=== PATIENT | female | born 1990 | race Caucasian/White ===

== ENCOUNTER → 2023-06-07 | Outpatient (CLI) | payer OTHER ==
--- NOTE | 2023-06-07 14:32 | US ---
EXAMINATION TYPE: US pelvic complete DATE OF EXAM: 06/07/2023 COMPARISON: NONE CLINICAL INDICATION: Female, 33 years old with history of N93.9 ABNORMAL UTERINE AND VAGINAL BLEEDING , UNSPECIFIED; breakthrough bleeding on BCP for years. TECHNIQUE: Transabdominal EXAM MEASUREMENTS: Uterus: 6.8 x 3.5 x 4.9 cm Endometrial Stripe: 0.4 cm 1. Uterus: Anteverted wnl 2. Endometrium: wnl 3. Right Ovary: Obscured by overlying bowel gas 4. Left Ovary: Obscured by overlying bowel gas 5. Bilateral Adnexa: wnl 6. Posterior cul-de-sac: wnl IMPRESSION: 1. No evidence for acute process. 2. Endometrium within normal limits for thickness.
== END | disposition home or self-care (01) ==
LOC: RADUSWWP 13:38
PROVIDERS: ATTEND Family Medicine
DX: N93.9 Abnormal uterine and vaginal bleeding, unspecified (principal)
CPT/HCPCS: 76856

== ENCOUNTER → 2024-01-04 | Outpatient (CLI) | payer OTHER ==
[2024-01-04 16:16] LABS: Thyroid Peroxidase Antibodies 11.7 U/mL (0.0-33.0)
[2024-01-04 16:26] LABS: T4, Free (Free Thyroxine) 1.18 ng/dL (0.80-1.80)
[2024-01-04 18:10] LABS: Gliadin AB IgA, Deaminated Negative (Negative); Gliadin AB IgA, Unit 0.7 U/mL; Gliadin AB IgG, Deaminated Negative (Negative); Gliadin AB IgG, Unit <0.4 U/mL
== END | disposition home or self-care (01) ==
LOC: LABWHC1 10:23
PROVIDERS: ATTEND Allergy & Immunology
DX: E04.9 Nontoxic goiter, unspecified (principal); K52.9 Noninfective gastroenteritis and colitis, unspecified; K21.9 Gastro-esophageal reflux disease without esophagitis; R10.10 Upper abdominal pain, unspecified; T78.2XXA Anaphylactic shock, unspecified, initial encounter; R53.82 Chronic fatigue, unspecified; R23.2 Flushing; Y99.9 Unspecified external cause status
CPT/HCPCS: 36415; 82784; 83516; 84439; 84443; 84481; 86376; 86800